=== PATIENT | male | born 1955 | race Caucasian/White ===

== ENCOUNTER 2018-02-05 22:39 | Emergency (ER) | payer OTHER ==
[2018-02-05] MEDS ORDERED: OXYCODONE/APAP 5/325 TAB PO ONE (23:45)
--- NOTE | 2018-02-06 00:56 | EDPHY ---
H & P Stated Complaint: swelling to the right arm and pain pt had surgery yesterday Time Seen by Provider: 02/05/18 23:00 HPI/ROS: Chief complaint: Right arm and hand pain, surgery yesterday History of present illness: This is a 62-year-old male who underwent a right wrist fusion yesterday by Dr. Chaec Díaz who presents to the emergency department for hand and wrist pain. He states he has had increasing pain since the surgery. His hand is very swollen. He is taking his OxyContin but it is not controlling the pain. He is not taking his oxycodone as he is concerned about combining it with the OxyContin with his history of sleep apnea. He has been told not to take NSAIDs after the surgery. He denies fevers, paresthesias or abnormal coolness in the fingers. - Personal History Current Tetanus/Diphtheria Vaccine: Unsure Current Tetanus Diphtheria and Acellular Pertussis (TDAP): Unsure - Medical/Surgical History Hx Asthma: No Hx Chronic Respiratory Disease: No Hx Diabetes: No Hx Cardiac Disease: No Hx Renal Disease: No Hx Cirrhosis: No Hx Alcoholism: No Hx HIV/AIDS: No Hx Splenectomy or Spleen Trauma: No Other PMH: right arm surgery, hernia, bilat knee surgery - Social History Smoking Status: Never smoked - Physical Exam Exam: General: Alert, nontoxic Musculoskeletal: Patient appears to be in a volar type splints with extensive padding. Fingers are edematous but he can move them. After cut down his wrist is not moved. His muscle compartments of the forearm appear soft. Skin: Edema to the fingers. Surgical incisions site appears to be healing well. No dehiscence or evidence of infection. Vascular: Capillary refill brisk in the digits of the right hand. Radial pulse 2 +. Neurologic: Sensation intact throughout the right hand. Constitutional: Initial Vital Signs Temperature (C) 36.8 C 02/05/18 22:40 Heart Rate 81 02/05/18 22:40 Respiratory Rate 18 02/05/18 22:40 Blood Pressure 129/94 H 02/05/18 22:40 O2 Sat (%) 94 02/05/18 22:40 O2 Delivery Mode Room Air Allergies/Adverse Reactions: No Known Allergies Allergy (Unverified 02/05/18 22:42) Home Medications: Medication Instructions Recorded Aspirin 81mg (*) 02/05/18 Oxycodone HCl 02/05/18 oxyCODONE CR [Oxycontin] 10 mg PO BID #6 tab 02/06/18 Medical Decision Making ED Course/Re-evaluation: Patient seen under the supervision of my secondary supervising physician Dr. Kwabena Gregory. Patient presents for right hand and wrist pain with associated swelling after a surgery yesterday. I have consulted with Dr. Shantelle Al of the patient's orthopedic group. He recommends cutting down the padding in a bivalve pattern to release pressure. This is performed. His wrist has been maintained in a splinted position during evaluation and treatment. I have had him elevate his hand for over an hour. He is given 2 Percocet. His pain has improved and his tolerable. An Gerardo wrap is placed back on to keep the splint in place. He is discharged home. Home care is discussed including pain management including his oral medications and elevating. He is asked to follow up with his orthopedic group on Thursday for recheck. He is given strict return precautions. Differential Diagnosis: Included but not limited to too tight of a splints, postoperative complications such as infection, compartment syndrome - Data Points Medications Given: Discontinued Medications Oxycodone/Acetaminophen (Percocet 5/325) 2 tab PO EDNOW ONE Stop: 02/05/18 23:46 Last Admin: 02/05/18 23:52 Dose: 2 tab Departure - Departure Disposition: Home, Routine, Self-Care Clinical Impression: Right arm pain Condition: Good Instructions: Splint Care (ED) Additional Instructions: Follow-up with Dr. Díaz'carin on Thursday for recheck Continue to take pain medications at home as prescribed If symptoms worsen or new symptoms develop return to the emergency room for recheck Referrals: Jeffrey Grier MD [Primary Care Provider] - As per Instructions Chace Díaz MD [Medical Doctor] - As per Instructions Prescriptions: oxyCODONE CR [Oxycontin] 10 mg PO BID #6 tab
[2018-02-06 01:37] VITALS: BP 132/76
== END 2018-02-06 01:21 | disposition home or self-care (01) ==
DX: G89.18 Other acute postprocedural pain (principal); M79.601 Pain in right arm

== ENCOUNTER → 2018-07-11 | Outpatient (CLI) | payer OTHER | LOC: FIMAGING 11:01 | PROVIDERS: ATTEND Orthopaedic Surgery Hand Surgery | DX: M25.531 Pain in right wrist (principal); Z98.1 Arthrodesis status ==

== ENCOUNTER 2018-12-06 18:04 | Emergency (ER) | payer OTHER ==
[2018-12-06] MEDS ORDERED: PROPARACAINE 0.5% 15 ML OPHT DROP ONE (18:54)
[2018-12-06] MEDS ORDERED: FLUORESCEIN SODIUM 1 MG STRIP OP ONE (18:54)
[2018-12-06] MEDS ORDERED: OFLOXACIN 0.3% SOLN PREPACK OPHT.BTL TAKEHOME ONE (19:02)
--- NOTE | 2018-12-06 19:02 | EDPHY ---
H & P Stated Complaint: L eye injury Time Seen by Provider: 12/06/18 18:47 HPI/ROS: CHIEF COMPLAINT: Left eye injury HISTORY OF PRESENT ILLNESS: The patient is a 63-year-old man who comes to the emergency department after taking a rubber piece off of a chair and it flew up and hit him in the left eye. He had immediate pain. He continues to have normal vision of about 20/30. He did have Lasix a few years ago. No foreign body sensation. No perforation. No headache. No drainage. Severity: Moderate Modifying factors: None REVIEW OF SYSTEMS: Constitutional: denies: chills, fever, recent illness, recent injury EENTM: See HPI Respiratory: denies: cough, shortness of breath Cardiac: denies: chest pain, irregular heart rate, lightheadedness, palpitations Gastrointestinal/Abdominal: denies: abdominal pain, diarrhea, nausea, vomiting, blood streaked stools Genitourinary: denies: dysuria, frequency, hematuria, pain Musculoskeletal: denies: joint pain, muscle pain Skin: denies: lesions, rash, jaundice, bruising Neurological: denies: headache, numbness, paresthesia, tingling, dizziness, weakness Hematologic/Lymphatic: denies: blood clots, easy bleeding, easy bruising Immunologic/allergic: denies: HIV/AIDS, transplant 10 systems reviewed and negative except as noted EXAM: GENERAL: Well-appearing, well-nourished and in no acute distress. HEAD: Atraumatic, normocephalic. EYES: Pupils equal round and reactive to light, extraocular movements intact, sclera anicteric, the bloody chemosis, corneal abrasion see diagram. No bony tenderness around the eye. ENT: TMs normal, nares patent, oropharynx clear without exudates. Moist mucous membranes. NECK: Normal range of motion, supple without lymphadenopathy or JVD. LUNGS: Breath sounds clear to auscultation bilaterally and equal. No wheezes rales or rhonchi. HEART: Regular rate and rhythm without murmurs, rubs or gallops. ABDOMEN: Soft, nontender, normoactive bowel sounds. No guarding, no rebound. No masses appreciated. BACK: No CVA tenderness, no spinal tenderness, step-offs or deformities EXTREMITIES: Normal range of motion, no pitting or edema. No clubbing or cyanosis. NEUROLOGICAL: Cranial nerves II through XII grossly intact. Normal speech, normal gait. 5/5 strength, normal movement in all extremities, normal sensation , normal reflexes PSYCH: Normal mood, normal affect. SKIN: Warm, dry, normal turgor, no visible rashes or lesions. Source: Patient Exam Limitations: No limitations - Personal History Current Tetanus/Diphtheria Vaccine: Yes Current Tetanus Diphtheria and Acellular Pertussis (TDAP): Yes - Medical/Surgical History Hx Asthma: No Hx Chronic Respiratory Disease: No Hx Diabetes: No Hx Cardiac Disease: No Hx Renal Disease: No Hx Cirrhosis: No Hx Alcoholism: No Hx HIV/AIDS: No Hx Splenectomy or Spleen Trauma: No Other PMH: right arm surgery, hernia, bilat knee surgery - Family History Significant Family History: No pertinent family hx - Social History Smoking Status: Never smoked Alcohol Use: None Constitutional: Initial Vital Signs Temperature (C) 37 C 12/06/18 18:10 Heart Rate 92 12/06/18 18:10 Respiratory Rate 16 12/06/18 18:10 Blood Pressure 155/83 H 12/06/18 18:10 O2 Sat (%) 94 12/06/18 18:10 O2 Delivery Mode Room Air Allergies/Adverse Reactions: No Known Allergies Allergy (Unverified 12/06/18 18:09) Home Medications: Medication Instructions Recorded Aspirin 81mg (*) 02/05/18 Prednisone 12/06/18 ED Images - Head Eyes Right/Left: 1 - Bloody chemosis, no difficulty closing eyes. Not circumferential. 2 - Corneal abrasion, negative Shyann sign. Medical Decision Making ED Course/Re-evaluation: Patient has has a corneal abrasion and bloody chemosis. I will treat with Ocuflox and have him follow up with Ophthalmology in the next 48 hr. He understands and agrees with this plan. Declines further workup or testing at this time. Discussed indications for returning. Differential Diagnosis: Partial list of the Differential diagnosis considered include but were not limited to; chemosis, corneal abrasion, perforation, intra-ocular bleeding and although unlikely based on the history and physical exam, I also considered infection, hypopyon, fracture. I discussed these differential diagnoses and the plan with the patient as well as the usual and expected course. The patient understands that the diagnosis is provisional and that in medicine we are not always correct and that further workup is often warranted. Usual and customary warnings were given. All of the patient's questions were answered. The patient was instructed to return to the emergency department should the symptoms at all worsen or return, otherwise to followup with the physician as we discussed. - Data Points Medications Given: Discontinued Medications Ofloxacin (Ocuflox 0.3% Opht Drops Prepack) 1 btl TAKEHOME EDNOW ONE Stop: 12/06/18 19:03 Last Admin: 12/06/18 19:23 Dose: 1 btl Departure - Departure Disposition: Home, Routine, Self-Care Clinical Impression: Bloody chemosis left eye Corneal abrasion, left Qualifiers: Encounter type: initial encounter Qualified Code(s): S05.02XA - Injury of conjunctiva and corneal abrasion without foreign body, left eye, initial encounter Condition: Fair Instructions: Ofloxacin (Into the eye), Corneal Abrasion (ED) Additional Instructions: Use the eyedrops 2 drops every 4 hr until you see Ophthalmology Referrals: Jeffrey Grier MD [Primary Care Provider] - As per Instructions Ada Graff MD [Medical Doctor] - 1-2 days without fail
[2018-12-06 19:29] VITALS: BP 141/77
== END 2018-12-06 19:29 | disposition home or self-care (01) ==
DX: S05.02XA Injury of conjunctiva and corneal abrasion without foreign body, left eye, initial encounter (principal); W20.8XXA Other cause of strike by thrown, projected or falling object, initial encounter

== ENCOUNTER → 2019-02-24 | Outpatient (CLI) | payer OTHER | LOC: FIMAGING 14:51 ==

== ENCOUNTER 2019-03-23 06:57 | Observation (INO) | payer OTHER | END 2019-03-24 12:00 | disposition home or self-care (01) | LOC: F3N 06:57 ==